=== PATIENT | female | born 1940 | race Caucasian/White ===

== ENCOUNTER 2016-10-29 08:36 | Inpatient (IN) | payer OTHER, MEDICARE ==
[~2016-10-29] VITALS: Ht 152.4 cm; Wt 75.0 kg
[2016-11-04] MEDS ORDERED: PROZ20CA11 PO (10:43)
[2016-11-04] MEDS ORDERED: GLIP5TAB8 PO (10:43)
[2016-11-04] MEDS ORDERED: LOVA40TA PO (10:43)
[2016-11-04] MEDS ORDERED: CALC1TAB87 PO (10:43)
[2016-11-04] MEDS ORDERED: FENO160T PO (10:43)
[2016-11-04] MEDS ORDERED: LISI20TA3 PO (10:43)
[2016-11-04] MEDS ORDERED: METF500T PO (10:43)
[2016-11-06] MEDS ORDERED: DEXT 5%-NACL 0.9% 1000 ML INJ 1,000 ML IV SCH (12:00)
[2016-11-06] MEDS ORDERED: LACTATED RINGER'S 1000 ML INJ 2,000 ML IV ONE (12:00)
[2016-11-06] MEDS ORDERED: PHENYLEPH/NS 1000 MCG/10 ML SYR IV ONE (12:00)
[2016-11-06] MEDS ORDERED: ONDANSETRON HCL 4 MG/2 ML VIAL IV PUSH ONE (12:00)
[2016-11-06] MEDS ORDERED: PROPOFOL 200 MG/20 ML AMP IV ONE (12:00)
[2016-11-06] MEDS ORDERED: METOPROLOL TARTRATE 25 MG TAB PO PRN (12:15)
[2016-11-06] MEDS ORDERED: SODIUM CHLORID 0.9% 500 ML IV PRN (12:15)
[2016-11-06] MEDS ORDERED: ALVIMOPAN 12 MG CAPSULE - On Call PO SCH (12:15)
[2016-11-06] MEDS ORDERED: ceFAZolin 1,000 MG/NS 100 ML IV SCH ×2 (12:15)
[2016-11-06] MEDS ORDERED: CHLORHEXIDINE GLUCONATE 2 % 1 PACK (2 CLOTHS) TOPICAL PRN (12:15)
[2016-11-06] MEDS ORDERED: METRONIDAZOLE 500 MG/100 ML ISONTONIC SOLN IV SCH (12:15)
[2016-11-06] MEDS ORDERED: LACTATED RINGER'S 1000 ML IV PRN (12:15)
[2016-11-06 12:40] VITALS: BP 142/76; PULSE 78; RESP 20; TEMP 99.5; O2SAT 98
[2016-11-06] MEDS: POVIDONE IODINE 5% (ANTISEPSIS KIT) 4 APPLICATIONS EACH NARE PRN ×2 (12:55→13:00)
--- NOTE | 2016-11-06 13:11 | PD.HP.UP ---
H&P Update Note The Pre-Admit History and Physical Examination regarding the above named patient was reviewed (including, but not limited to, vital signs, heart, lungs, co-morbid conditions), and upon re-examination it is noted that: the patient's condition has not significantly changed since the last examination. Shorty Hernandez MD Nov 06, 2016 13:11
[2016-11-06] MEDS ORDERED: BUPIVACAINE HCL PF 0.5% 30 ML VIAL ONE (13:18)
[2016-11-06] MEDS ORDERED: ACETAMINOPHEN 1000 MG/100 ML VIAL IV ONE (13:30)
[2016-11-06] MEDS ORDERED: DICLOFENAC SODIUM 37.5 MG/ML VIAL IV PUSH ONE (13:31)
[2016-11-06] MEDS ORDERED: SUGAMMADEX SODIUM 200 MG/2 ML VIAL IV PUSH ONE ×2 (14:57)
[2016-11-06] MEDS ORDERED: POTASSIUM CHLOR 40 MEQ PREMIX 100 ML IV PRN (16:00)
[2016-11-06] MEDS ORDERED: SODIUM CHLORIDE 0.9% FLUSH 10 ML FLUSH IV FLUSH PRN (16:00)
[2016-11-06] MEDS ORDERED: NALOXONE HCL 0.4 MG/ML AMP IV PRN (16:00)
[2016-11-06] MEDS ORDERED: ACETAMINOPHEN/HYDROcodone 325 MG/5 MG TAB PO PRN (16:00)
[2016-11-06] MEDS ORDERED: BENZOCAINE 6 MG/MENTHOL 10 MG LOZENGE BUCCAL PRN (16:00)
[2016-11-06] MEDS ORDERED: ZOLPIDEM TARTRATE 5 MG TAB PO PRN (16:00)
[2016-11-06] MEDS ORDERED: Post-op Orders (for Pharmacy) MISC XX ONE (16:00)
[2016-11-06] MEDS ORDERED: POTASSIUM CHLOR 20 MEQ PREMIX 100 ML IV PRN (16:00)
[2016-11-06] MEDS ORDERED: ENALAPRILAT 1.25 MG/ML VIAL IV PRN (16:00)
[2016-11-06] MEDS ORDERED: GLUCAGON 1 MG/ML VIAL OTHER PRN (16:15)
[2016-11-06] MEDS ORDERED: DEXTROSE 50% IN WATER 50 ML VIAL(D50) IV PUSH PRN (16:15)
[2016-11-06] MEDS ORDERED: MIDAZOLAM HCL 2 MG/2 ML VIAL ONE (16:17)
[2016-11-06] MEDS ORDERED: fentaNYL CITRATE 250 MCG/5 ML AMP ONE (16:18)
[2016-11-06] MEDS ORDERED: ARTIFICIAL TEARS OPTH OINT 3.5 APPLIC/3.5 GM TUBO ONE (16:20)
[2016-11-06 16:30] LABS: AUTOMATED NEUTROPHIL # 10.5 TH/MM3 (1.8-7.7); BASOPHIL # 0.1 TH/MM3 (0-0.2); BASOPHIL % 0.5 % (0.0-2.0); EOSINOPHIL # 0.1 TH/MM3 (0-0.4); EOSINOPHIL % 0.6 % (0.0-4.0); HEMATOCRIT 30.4 % (35.0-46.0); HEMO FLAGS DIFF FINAL; LYMPH % 10.8 % (9.0-44.0); LYMPHOCYTE # 1.4 TH/MM3 (1.0-4.8); MEAN CELL VOLUME 81.5 FL (80.0-100.0); MEAN CORPUSCULAR HEMOGLOBIN 26.4 PG (27.0-34.0); MEAN CORPUSCULAR HGB CONC 32.4 % (32.0-36.0); MONO % 5.3 % (0.0-8.0); NEUT % 82.8 % (16.0-70.0); PLATELET COUNT 403 TH/MM3 (150-450); RED BLOOD COUNT 3.73 MIL/MM3 (4.00-5.30); RED CELL DISTRIBUTION WIDTH 13.9 % (11.6-17.2); WHITE BLOOD COUNT 12.6 TH/MM3 (4.0-11.0)
[2016-11-06] MEDS: MORPHINE SULFATE 30 MG/30 ML PCA IV SCH (16:44)
[2016-11-06 16:49] LABS: POTASSIUM 3.4 MEQ/L (3.5-5.1)
[2016-11-06] MEDS ORDERED: D5-LR + KCL 20 MEQ INJ 1,000 ML IV SCH (17:00)
[2016-11-06] MEDS ORDERED: *morphine SULFATE 8 MG/ML PERIprocedure ONLY ONE (17:07)
[2016-11-06] MEDS ORDERED: *ONDANSETRON 4 MG VIAL PERIprocedural Use ONLY ONE (17:08)
[2016-11-06] MEDS: METOCLOPRAMIDE HCL 10 MG/2 ML VIAL IVS SCH (17:13)
[2016-11-06 17:20] LABS: CALCIUM-PROTEIN CORRECTED 8.3 MG/DL (8.5-10.1)
[2016-11-06] MEDS ORDERED: DO NOT ADM ANY ANTICOAGULANT DRUGS PRN (17:30)
[2016-11-06 19:00] VITALS: BP 160/90; PULSE 77; PULSE 80; RESP 20; TEMP 98.8; O2SAT 97
[2016-11-06] MEDS: ceFAZolin 2 GM PREMIX 50 ML IV SCH (20:58)
[2016-11-06] MEDS: metroNIDAZOLE 500 MG INJ 100 ML IV SCH (20:59)
[2016-11-06 21:00] VITALS: PULSE 80
[2016-11-06] MEDS: INSULIN NovoLIN REGULAR SUPPLEMENTAL SCALE SQ SCH ×2 (21:00→22:22)
[2016-11-06] MEDS: FUROSEMIDE 20 MG/2 ML VIAL IV SCH (21:00)
[2016-11-06] MEDS: SODIUM CHLORIDE 0.9% FLUSH 10 ML FLUSH IV FLUSH SCH (21:00)
[2016-11-06] MEDS ORDERED: NON-FORMULARY DRUG (Fenofibrate 160 MG) PO SCH (21:00)
[2016-11-06 22:00] VITALS: PULSE 78
[2016-11-06] MEDS: PCA - TOTAL MG MORPHINE DELIVERED PER SHIFT SCH (22:00)
[2016-11-06] MEDS: SODIUM CHLOR 0.9% 1000 ML INJ 1,000 ML IV SCH (22:25)
[2016-11-06 23:00] VITALS: PULSE 83
[2016-11-06 23:12] VITALS: BP 145/93; PULSE 81; TEMP 97.8; O2SAT 96
[2016-11-07] VITALS (19 sets, daily range): BP systolic 117–146; BP diastolic 68–80; PULSE 80–109; RESP 17–20; TEMP 98.5–100.7; O2SAT 93–97
[2016-11-07] MEDS: METOCLOPRAMIDE HCL 10 MG/2 ML VIAL IVS SCH ×4 (00:48→17:53)
[2016-11-07] MEDS: MORPHINE SULFATE 30 MG/30 ML PCA IV SCH (02:33)
[2016-11-07] MEDS: metroNIDAZOLE 500 MG INJ 100 ML IV SCH ×2 (05:32→12:41)
[2016-11-07] MEDS: ceFAZolin 2 GM PREMIX 50 ML IV SCH ×2 (05:32→12:41)
[2016-11-07] MEDS: SODIUM CHLOR 0.9% 1000 ML INJ 1,000 ML IV SCH (05:33)
[2016-11-07] MEDS: PCA - TOTAL MG MORPHINE DELIVERED PER SHIFT SCH ×3 (06:00→22:00)
[2016-11-07] MEDS: INSULIN NovoLIN REGULAR SUPPLEMENTAL SCALE SQ SCH ×4 (06:17→21:00)
[2016-11-07 06:48] LABS: AUTOMATED NEUTROPHIL # 11.3 TH/MM3 (1.8-7.7); HEMO FLAGS DIFF FINAL; LYMPH % 5.1 % (9.0-44.0); LYMPHOCYTE # 0.7 TH/MM3 (1.0-4.8); MEAN CELL VOLUME 81.9 FL (80.0-100.0); MEAN CORPUSCULAR HEMOGLOBIN 26.6 PG (27.0-34.0); MEAN CORPUSCULAR HGB CONC 32.5 % (32.0-36.0); MONO % 6.6 % (0.0-8.0); NEUT % 88.3 % (16.0-70.0); PLATELET COUNT 410 TH/MM3 (150-450); RED BLOOD COUNT 4.15 MIL/MM3 (4.00-5.30); RED CELL DISTRIBUTION WIDTH 13.9 % (11.6-17.2); WHITE BLOOD COUNT 12.8 TH/MM3 (4.0-11.0)
[2016-11-07 07:11] LABS: BICARBONATE 27.9 MEQ/L (21.0-32.0); POTASSIUM 3.7 MEQ/L (3.5-5.1)
[2016-11-07 07:29] LABS: CALCIUM-PROTEIN CORRECTED 7.8 MG/DL (8.5-10.1)
[2016-11-07] MEDS ORDERED: NON-FORMULARY DRUG (Lisinopril-Hctz 1 TAB) PO SCH (09:00)
[2016-11-07] MEDS: HYDROCHLOROTHIAZIDE 25 MG TAB PO SCH (09:14)
[2016-11-07] MEDS: FENOFIBRATE 48 MG TAB PO SCH (09:14)
[2016-11-07] MEDS: ALVIMOPAN 12 MG CAPSULE - Post-op dosing PO SCH ×2 (09:15→23:24)
[2016-11-07] MEDS: FLUoxetine HCL 20 MG CAP PO SCH (09:19)
[2016-11-07] MEDS: PANTOPRAZOLE SODIUM 40 MG VIAL IVP SCH (09:19)
[2016-11-07] MEDS: FUROSEMIDE 20 MG/2 ML VIAL IV SCH ×2 (09:19→23:24)
[2016-11-07] MEDS: SODIUM CHLORIDE 0.9% FLUSH 10 ML FLUSH IV FLUSH SCH ×2 (09:20→21:00)
[2016-11-07] MEDS: PRAVASTATIN SOD 40 MG TAB PO SCH (09:23)
[2016-11-07] MEDS: LISINOPRIL 20 MG TAB PO SCH (09:23)
--- NOTE | 2016-11-07 13:24 | HHI.PR ---
Subjective Remarks No N or V. No BMs Objective Vital Signs Date Time Temp Pulse Resp B/P Pulse Ox O2 Delivery O2 Flow Rate FiO2 11/07/16 13:00 89 11/07/16 12:00 88 11/07/16 11:00 86 11/07/16 11:00 98.5 85 20 117/75 97 11/07/16 10:00 86 11/07/16 09:16 93 Nasal Cannula 2.00 11/07/16 09:00 84 11/07/16 08:00 80 11/07/16 07:48 99.2 86 20 130/80 96 11/07/16 07:00 86 11/07/16 06:07 87 11/07/16 06:00 18 11/07/16 05:54 90 11/07/16 04:00 84 11/07/16 03:52 98.8 86 119/78 97 11/07/16 03:02 16 11/07/16 03:00 85 11/07/16 02:33 18 11/07/16 02:00 82 11/07/16 01:00 82 11/07/16 00:00 80 11/06/16 23:12 97.8 81 145/93 96 11/06/16 23:00 83 11/06/16 22:00 78 11/06/16 22:00 18 11/06/16 21:00 80 11/06/16 19:00 80 11/06/16 19:00 98.8 77 20 160/90 97 11/06/16 18:00 97.6 77 12 156/71 95 Nasal Cannula 2 11/06/16 17:30 73 13 166/78 98 Nasal Cannula 2 11/06/16 17:15 68 19 139/73 100 Nasal Cannula 2 11/06/16 17:00 63 15 140/70 100 Nasal Cannula 2 11/06/16 16:45 62 14 140/65 98 Nasal Cannula 2 11/06/16 16:44 15 11/06/16 16:30 60 12 132/70 98 Nasal Cannula 2 11/06/16 16:15 61 14 152/70 98 Nasal Cannula 2 11/06/16 16:07 98.0 69 16 172/80 97 Nasal Cannula 2 I/O 11/06/16 11/06/16 11/06/16 11/07/16 11/07/16 11/07/16 07:00 15:00 23:00 07:00 15:00 23:00 Intake Total 1700 ml 1370 ml Output Total 850 ml 1970 ml Balance 850 ml -600 ml Intake Oral 120 ml IV Total 1250 ml Other 1700 ml Output Urine Total 500 ml 1900 ml Drainage Total 100 ml 70 ml Estimated Blood Loss 250 ml Result Diagram: 11/07/16 0525 11/07/16524 Objective Remarks VS-S Abd: soft,dressing dry. I&Os-OK Labs-OK Assessment and Plan Assessment and Plan Stable POD#[address] [place] [address], CEDRIC,Shorty Chapa MD Nov 07, 2016 13:24
[2016-11-07] MEDS: POTASSIUM CHLORIDE INJ 20 MEQ in LACTATED RINGER'S 1000 ML INJ 1,000 ML IV SCH ×2 (14:25→23:05)
[2016-11-07] MEDS: INSULIN HUMAN REGULAR 1,000 UNITS/10 ML VIAL SQ PRN (18:06)
[2016-11-07] MEDS ORDERED: ALVIMOPAN 12 MG CAPSULE PO SCH (21:00)
[2016-11-08] VITALS: BP 136/81; PULSE 104; RESP 18; TEMP 100.2; O2SAT 93
[2016-11-08 04:00] VITALS: BP 161/81; PULSE 103; RESP 18; TEMP 99.6; O2SAT 92
[2016-11-08] MEDS: METOCLOPRAMIDE HCL 10 MG/2 ML VIAL IVS SCH ×5 (05:34→18:00)
[2016-11-08] MEDS: PCA - TOTAL MG MORPHINE DELIVERED PER SHIFT SCH (05:36)
[2016-11-08] MEDS: INSULIN NovoLIN REGULAR SUPPLEMENTAL SCALE SQ SCH ×4 (05:43→21:00)
[2016-11-08] MEDS: POTASSIUM CHLORIDE INJ 20 MEQ in LACTATED RINGER'S 1000 ML INJ 1,000 ML IV SCH ×2 (07:10→20:32)
[2016-11-08 07:21] LABS: AUTOMATED NEUTROPHIL # 11.8 TH/MM3 (1.8-7.7); BASOPHIL % 0.2 % (0.0-2.0); HEMATOCRIT 31.2 % (35.0-46.0); HEMO FLAGS DIFF FINAL; LYMPHOCYTE # 0.9 TH/MM3 (1.0-4.8); MEAN CELL VOLUME 81.1 FL (80.0-100.0); MEAN CORPUSCULAR HEMOGLOBIN 26.3 PG (27.0-34.0); MEAN CORPUSCULAR HGB CONC 32.4 % (32.0-36.0); MONO % 5.9 % (0.0-8.0); NEUT % 86.9 % (16.0-70.0); PLATELET COUNT 409 TH/MM3 (150-450); RED BLOOD COUNT 3.84 MIL/MM3 (4.00-5.30); WHITE BLOOD COUNT 13.5 TH/MM3 (4.0-11.0)
[2016-11-08 07:57] LABS: BICARBONATE 28.3 MEQ/L (21.0-32.0); POTASSIUM 3.3 MEQ/L (3.5-5.1)
[2016-11-08 08:00] VITALS: BP 170/85; PULSE 101; RESP 16; TEMP 99.1; O2SAT 93
[2016-11-08] MEDS: ALVIMOPAN 12 MG CAPSULE - Post-op dosing PO SCH ×2 (08:56→21:14)
[2016-11-08] MEDS: LISINOPRIL 20 MG TAB PO SCH (08:56)
[2016-11-08] MEDS: HYDROCHLOROTHIAZIDE 25 MG TAB PO SCH (08:57)
[2016-11-08] MEDS: PANTOPRAZOLE SODIUM 40 MG VIAL IVP SCH (08:57)
[2016-11-08] MEDS: FLUoxetine HCL 20 MG CAP PO SCH (08:57)
[2016-11-08] MEDS: PRAVASTATIN SOD 40 MG TAB PO SCH (08:57)
[2016-11-08] MEDS: FENOFIBRATE 48 MG TAB PO SCH (08:58)
[2016-11-08] MEDS: FUROSEMIDE 20 MG/2 ML VIAL IV SCH ×2 (08:59→21:14)
[2016-11-08] MEDS: SODIUM CHLORIDE 0.9% FLUSH 10 ML FLUSH IV FLUSH SCH ×2 (08:59→21:14)
--- NOTE | 2016-11-08 11:32 | MP ---
cc: PAOLA HERNANDEZ M.D. DATE OF SURGERY: 11/08/2016. PREOPERATIVE DIAGNOSIS: Sigmoid colon carcinoma. POSTOPERATIVE DIAGNOSIS: Sigmoid colon carcinoma. OPERATIVE PROCEDURE PERFORMED: Rectosigmoidectomy. SURGEON: Paola Hernandez M.D. PRODUCT EXAMINER: Gomez Mtz MD. ANESTHESIA: General endotracheal anesthesia. ESTIMATED BLOOD LOSS: 300 cc. OPERATIVE FINDINGS: This patient was found to have a sigmoid colon carcinoma that was nearly obstructing. For this reason, colectomy was recommended with intraoperative colonoscopy. At surgery, exploration of the abdominal cavity was within normal limits including palpation of the liver, gallbladder, small bowel and the remainder of the colon. The uterus and tubes and ovaries were also intact and normal-appearing. The carcinoma was located in the sigmoid colon and a sigmoidectomy was done with a colorectal anastomosis. An intraoperative colonoscopy was also done to the cecum after the resection and the colonoscopy was normal. DESCRIPTION OF THE PROCEDURE IN DETAIL / OPERATIVE TECHNIQUE: The patient was placed on the table in the supine position. After adequate general endotracheal anesthesia, the legs were placed in the perineolithotomy position and the abdomen and perineum were prepped and draped in the usual manner. A transverse infraumbilical skin incision was made and carried down through the subcutaneous tissue and the rectus muscles and the peritoneal cavity was entered with the above-mentioned findings. Attention was turned to the sigmoid colon, which was mobilized along its peritoneal reflection. It had some dense adhesions along its peritoneal reflection in the sigmoid region and the descending colon was likewise mobilized as was the full splenic flexure and transverse colon because it appeared that we would need an extra length of colon to create the anastomosis. Next, the inferior mesenteric artery was doubly clamped, cut and doubly ligated at its origin and the inferior mesenteric vein was likewise clamped, cut and ligated. The retrorectal space was entered and the lateral pelvic peritoneum was incised bilaterally. Again there was fibrous dense dissection laterally along the peritoneal reflection. The retrorectal space was dissected deeply into the pelvis as was the lateral dissection. The cul-de-sac was not fully entered but the cul-de-sac serosa was creased to allow mobilization. Next, a point was chosen on the mid to upper rectum which seemed soft and pliable and the mesorectum was divided with electrocautery. The pursestring stapling device was then placed on the rectum and the rectum was divided. At this point, the rectum was aspirated of any liquid stool transanally and then the rectum was opened from above and irrigated. There were small pieces of stool in the rectum that were taken out at that time and the rectum was irrigated thoroughly with saline solution. When this was done, a point was chosen in the proximal bowel just above the sigmoid colon and the remainder of the sigmoid mesentery was clamped, cut and ligated and the sigmoid colon was cleared. There were diverticula present in the sigmoid colon but a point that was cleared diverticula was chosen and the pursestring stapling device was placed and the bowel was divided and the specimen was removed from the table. The anvil of the 33 EEA instrument was placed in the proximal bowel the pursestring was tied free of any surrounding diverticula. Next, the EEA instrument was placed transanally by Dr. Mtz and the distal pursestring was tied in the instrument was connected, closed and fired creating the anastomosis. There was no tension on the anastomosis and the blood supply was excellent. Dr. Mtz then did proctosigmoidoscopy examination insufflating air into the rectum with saline solution in the pelvis and no air leaks were identified. He then did colonoscopy through the anastomosis and up to the cecum identifying no other lesions in the proximal colon since she had an incomplete colonoscopy prior to the surgery. Next, we again leak tested the anastomosis insufflating air into the rectum with the colonoscope with saline solution in the pelvis and no air leaks were identified again. The fully mobilized omental flap was then placed down the left colic gutter and placed around the left colic gutter and placed in the pelvis to seal the pelvis. It should be mentioned that the abdominal cavity was irrigated with at least 4 liters of saline solution thoroughly washing out the abdominal cavity. A #10 flat Pj drain was placed in the retrorectal space and brought out through a separate stab wound and the bowels were placed in the abdominal cavity in an overseamer manner. All hemostasis was checked throughout the case, and at the end of the case, and was controlled with electrocautery and ligature and was adequate. Next the abdominal cavity was closed in layers using a double-stranded #1 PDS for the posterior rectus sheath. The muscle layer was irrigated thoroughly with saline solution, aspirated dry and then the anterior rectus sheath was closed with a double-stranded #1 PDS as well. The subcutaneous tissue was irrigated thoroughly with saline solution, aspirated dry and skin was closed with running 3-0 Vicryl subcuticular suture and dressing was applied. Sponge, needle and instrument counts were reported as correct. Estimated blood loss was 300 mL. The patient tolerated the procedure well and left the operating room in good condition. MD TE Jarvis/MARCE /9:46 PM /11:17 AM
--- NOTE | 2016-11-08 11:45 | HHI.PR ---
Subjective Remarks No N or V. No BMs. Schilling removed Objective Vital Signs Date Time Temp Pulse Resp B/P Pulse Ox O2 Delivery O2 Flow Rate FiO2 11/08/16 08:00 99.1 101 16 170/85 93 11/08/16 05:36 18 11/08/16 04:00 99.6 103 18 161/81 92 11/08/16 00:00 100.2 104 18 136/81 93 11/07/16 22:00 18 11/07/16 20:00 100.7 109 18 146/71 94 11/07/16 16:00 98.9 93 17 139/68 93 11/07/16 14:00 20 11/07/16 13:00 89 11/07/16 12:00 88 I/O 11/07/16 11/07/16 11/07/16 11/08/16 11/08/16 11/08/16 06:59 14:59 22:59 06:59 14:59 22:59 Intake Total 1370 ml 2725 ml 767 ml Output Total 1970 ml 1780 ml 400 ml Balance -600 ml 945 ml 367 ml Intake Oral 120 ml 580 ml IV Total 1250 ml 2145 ml 767 ml Output Urine Total 1900 ml 1700 ml 400 ml Drainage Total 70 ml 80 ml Result Diagram: 11/08/16 0532 11/08/16531 Objective Remarks VS-S Abd: soft,dressing off today I&Os-OK Labs-OK Assessment and Plan Assessment and Plan Stable POD#2 FLD, Ambulate,decrease IVs Shorty Hernandez MD Nov 08, 2016 11:45
[2016-11-08 12:00] VITALS: BP 159/75; PULSE 98; RESP 14; TEMP 98.3; O2SAT 94
[2016-11-08] MEDS: INSULIN HUMAN REGULAR 1,000 UNITS/10 ML VIAL SQ PRN ×2 (12:10→16:37)
[2016-11-08 16:00] VITALS: BP 140/71; PULSE 92; RESP 16; TEMP 98.8; O2SAT 94
[2016-11-08 20:00] VITALS: BP 141/69; PULSE 69; RESP 20; TEMP 100.2; O2SAT 94
[2016-11-08] MEDS: ACETAMINOPHEN/HYDROcodone 325 MG/5 MG TAB PO PRN (21:13)
[2016-11-09] VITALS (7 sets, daily range): BP systolic 126–166; BP diastolic 68–81; PULSE 72–99; RESP 18–20; TEMP 98.7–100.6; O2SAT 94–96
[2016-11-09] MEDS: METOCLOPRAMIDE HCL 10 MG/2 ML VIAL IVS SCH ×5 (00:16→23:58)
[2016-11-09] MEDS: INSULIN NovoLIN REGULAR SUPPLEMENTAL SCALE SQ SCH ×4 (06:18→21:12)
[2016-11-09] MEDS: LISINOPRIL 20 MG TAB PO SCH (08:51)
[2016-11-09] MEDS: HYDROCHLOROTHIAZIDE 25 MG TAB PO SCH (08:51)
[2016-11-09] MEDS: FUROSEMIDE 20 MG/2 ML VIAL IV SCH (08:51)
[2016-11-09] MEDS: FLUoxetine HCL 20 MG CAP PO SCH (08:51)
[2016-11-09] MEDS: PANTOPRAZOLE SODIUM 40 MG VIAL IVP SCH (08:52)
[2016-11-09] MEDS: SODIUM CHLORIDE 0.9% FLUSH 10 ML FLUSH IV FLUSH SCH ×2 (08:52→21:08)
[2016-11-09] MEDS: PRAVASTATIN SOD 40 MG TAB PO SCH (08:52)
[2016-11-09] MEDS: FENOFIBRATE 48 MG TAB PO SCH (08:52)
[2016-11-09] MEDS: ALVIMOPAN 12 MG CAPSULE - Post-op dosing PO SCH ×2 (08:52→21:07)
--- NOTE | 2016-11-09 11:24 | HHI.PR ---
Subjective Remarks No N or V. Small BM yesterday Objective Vital Signs Date Time Temp Pulse Resp B/P Pulse Ox O2 Delivery O2 Flow Rate FiO2 11/09/16 04:00 98.7 11/09/16 00:00 100.6 90 18 166/81 94 11/08/16 20:00 100.2 69 20 141/69 94 11/08/16 16:00 98.8 92 16 140/71 94 11/08/16 12:00 98.3 98 14 159/75 94 I/O 11/08/16 11/08/16 11/08/16 11/09/16 11/09/16 11/09/16 07:00 15:00 23:00 07:00 15:00 23:00 Intake Total 767 ml 1200 ml 240 ml 665 ml Output Total 400 ml 1700 ml 600 ml 600 ml Balance 367 ml -500 ml -360 ml 65 ml Intake Oral 1200 ml 240 ml 240 ml IV Total 767 ml 425 ml Output Urine Total 400 ml 1700 ml 600 ml 500 ml Drainage Total 100 ml # Bowel Movements 1 0 0 Result Diagram: 11/08/16 0532 11/08/16 0532 Objective Remarks VS-S Abd: soft,dressing removed I&Os-OK Labs-OK Assessment and Plan Assessment and Plan Stable POD#3 Regular diet. Ambulate Shorty Hernandez MD Nov 09, 2016 11:24
[2016-11-09] MEDS: ACETAMINOPHEN/HYDROcodone 325 MG/5 MG TAB PO PRN (21:12)
[2016-11-10] VITALS: BP 139/87; PULSE 104; RESP 19; TEMP 100.2; O2SAT 95
[2016-11-10] MEDS: ACETAMINOPHEN/HYDROcodone 325 MG/5 MG TAB PO PRN ×2 (03:32→06:39)
[2016-11-10 04:00] VITALS: TEMP 98.2
[2016-11-10] MEDS: METOCLOPRAMIDE HCL 10 MG/2 ML VIAL IVS SCH ×2 (06:31→12:29)
[2016-11-10] MEDS: INSULIN NovoLIN REGULAR SUPPLEMENTAL SCALE SQ SCH ×2 (06:36→12:33)
[2016-11-10 08:00] VITALS: BP 94/62; PULSE 68; RESP 16; TEMP 97.5; O2SAT 93
[2016-11-10] MEDS: HYDROCHLOROTHIAZIDE 25 MG TAB PO SCH (09:06)
[2016-11-10] MEDS: LISINOPRIL 20 MG TAB PO SCH (09:06)
[2016-11-10] MEDS: FENOFIBRATE 48 MG TAB PO SCH (09:06)
[2016-11-10] MEDS: PANTOPRAZOLE SODIUM 40 MG VIAL IVP SCH (09:06)
[2016-11-10] MEDS: ALVIMOPAN 12 MG CAPSULE - Post-op dosing PO SCH (09:07)
[2016-11-10] MEDS: PRAVASTATIN SOD 40 MG TAB PO SCH (09:07)
[2016-11-10] MEDS: FLUoxetine HCL 20 MG CAP PO SCH (09:07)
--- NOTE | 2016-11-10 09:46 | HHI.DCPOC ---
Discharge Care Plan Diagnosis: (1) Cancer, colon (2) Status post partial resection of colon Your Health Problems Are: Incision/Drains Appetite Changes Irregular Bowel Function Exercise Tolerance Fluctuating Blood Sugars Goals to Promote Your Health * To prevent worsening of your condition and complications * To maintain your health at the optimal level Directions to Meet Your Goals Take your medications as prescribed Follow your dietary instruction Follow activity as directed Keep your appointments as scheduled Take your immunizations and boosters as scheduled If your symptoms worsen call your PCP, if no PCP go to Urgent Care Center or Emergency Room Smoking is Dangerous to Your Health. Avoid second hand smoke Call the 24-hour hour crisis hotline for domestic abuse at Shorty Hernandez MD Nov 10, 2016 09:46
--- NOTE | 2016-11-10 09:51 | HHI.PR ---
Subjective Remarks No N or V. Several Small BMs. Several low grade temps to 100.5. No SOB,dysuria or abdominal pain. Objective Vital Signs Date Time Temp Pulse Resp B/P Pulse Ox O2 Delivery O2 Flow Rate FiO2 11/10/16 08:00 97.5 68 16 94/62 93 11/10/16 04:00 98.2 11/10/16 00:00 100.2 104 19 139/87 95 11/09/16 20:00 100.0 72 19 126/74 96 11/09/16 16:17 84 11/09/16 16:00 100.2 99 20 128/68 95 11/09/16 12:00 99.6 92 18 130/73 96 I/O 11/09/16 11/09/16 11/09/16 11/10/16 11/10/16 11/10/16 07:00 15:00 23:00 07:00 15:00 23:00 Intake Total 665 ml 1600 ml 240 ml 240 ml Output Total 600 ml 1660 ml 250 ml 10 ml Balance 65 ml -60 ml -10 ml 230 ml Intake Oral 240 ml 1200 ml 240 ml 240 ml IV Total 425 ml 400 ml Output Urine Total 500 ml 1600 ml 200 ml Drainage Total 100 ml 60 ml 50 ml 10 ml # Voids 2 # Bowel Movements 0 0 0 0 Result Diagram: 11/08/16 0532 11/08/16531 Objective Remarks VS-S Abd: soft,wound clean. No redness Assessment and Plan Assessment and Plan Stable; several low grade temps. POD#4 Drain clear and removed by me. Check stat CxR,CBC,and U/A then D/C today if acceptable Shorty Hernandez MD Nov 10, 2016 09:51
--- NOTE | 2016-11-10 10:23 | RADRPT ---
EXAM DATE/TIME: 11/10/2016 10:09 [facility] COMPARISON: No previous studies available for comparison. INDICATIONS : Shortness of breath and fever since yesterday. MEDICAL HISTORY : Hypertension. Diabetes mellitus type II. SURGICAL HISTORY : None. ENCOUNTER: Initial ACUITY: 2 days PAIN SCORE: 0/10 LOCATION: Bilateral chest FINDINGS: PA and lateral views of the chest demonstrate the lungs to be symmetrically aerated without evidence of mass, infiltrate or effusion. There is eventration of the right hemidiaphragm. A linear area of ai r-like density is seen projecting below the right hemidiaphragm on the lateral projection. The cardio mediastinal contours are unremarkable. Osseous structures are intact. CONCLUSION: 1. Concern for possible pneumoperitoneum. Consider either CT scan of the abdomen pelvis or decubitus views of the abdomen to further evaluate. 2. Clear lungs. Robi Swan Jr., MD on November 10, 2016 at 10:20 Board Certified Radiologist. This report was verified electronically.
[2016-11-10 12:00] VITALS: BP 139/64; PULSE 84; RESP 16; TEMP 97.5; O2SAT 96
[2016-11-10 12:54] LABS: BACTERIA, URINE OCC /hpf; BLOOD, URINE NEG (NEG); COMMENT (UR) CULTURE INDICATED; CULTURE IF INDICATED CULTURE INDICATED; GLUCOSE,URINE NEG (NEG); HYALINE CAST, URINE 10 /lpf (RARE); KETONE, URINE TRACE mg/dL (NEG); MUCUS URINE FEW /lpf (OCC); NITRITE,URINE NEG (NEG); SQUAMOUS EPITHELIAL CELL URINE 1 /hpf (0-5); URINE COLOR YELLOW (YELLW/STRAW)
[2016-11-10 13:31] LABS: AUTOMATED NEUTROPHIL # 6.9 TH/MM3 (1.8-7.7); BASOPHIL # 0.1 TH/MM3 (0-0.2); BASOPHIL % 0.9 % (0.0-2.0); EOSINOPHIL # 0.2 TH/MM3 (0-0.4); EOSINOPHIL % 1.6 % (0.0-4.0); HEMATOCRIT 34.1 % (35.0-46.0); HEMO FLAGS DIFF FINAL; LYMPH % 20.3 % (9.0-44.0); MEAN CELL VOLUME 80.2 FL (80.0-100.0); MEAN CORPUSCULAR HEMOGLOBIN 25.9 PG (27.0-34.0); MEAN CORPUSCULAR HGB CONC 32.2 % (32.0-36.0); MONO % 7.9 % (0.0-8.0); NEUT % 69.3 % (16.0-70.0); PLATELET COUNT 596 TH/MM3 (150-450); RED BLOOD COUNT 4.25 MIL/MM3 (4.00-5.30); RED CELL DISTRIBUTION WIDTH 13.8 % (11.6-17.2); WHITE BLOOD COUNT 9.9 TH/MM3 (4.0-11.0)
[2016-11-10 16:00] VITALS: BP 127/66; PULSE 94; RESP 16; TEMP 98.3; O2SAT 98
== END 2016-11-10 18:19 | disposition home or self-care (01) | DRG 331 ==
LOC: HSDI 11-06 11:37 → HCIS 11-06 18:39 → N07A 11-07 16:02
PROVIDERS: ADMIT Colon & Rectal Surgery; ATTEND Colon & Rectal Surgery
PROC: 0DJD8ZZ Inspection of Lower Intestinal Tract, Via Natural or Artificial Opening Endoscopic (ICD-10-PCS; 2016-11-06)
PROC: 0DTN0ZZ Resection of Sigmoid Colon, Open Approach (ICD-10-PCS; principal; 2016-11-06 13:30)
PROC: 0DBP0ZZ Excision of Rectum, Open Approach (ICD-10-PCS; 2016-11-06 13:30)
DX: C18.7 Malignant neoplasm of sigmoid colon (principal); E11.9 Type 2 diabetes mellitus without complications; K76.0 Fatty (change of) liver, not elsewhere classified; E66.9 Obesity, unspecified; I10 Essential (primary) hypertension; K57.30 Diverticulosis of large intestine without perforation or abscess without bleeding; E78.5 Hyperlipidemia, unspecified; Z87.891 Personal history of nicotine dependence
CPT/HCPCS: 71020; 80048; 80053; 81001; 82378; 82948; 84155; 85025; 85610; 85730; 86850; 86900; 86901; 87086; 88309; 93005; 94150; C9113; J0131; J0690; J1130; J1815; J1940; J2250; J2270; J2370; J2405; J2765; J3010; J3480; J7030; J7042; J7120

== ENCOUNTER → 2016-11-04 | Outpatient (CLI) | payer OTHER ==
[~2016-11-04] MED LIST: ANAP550T OR; CALC1TAB87 PO; FENO160T PO; FLON0.053; GLIP5TAB8 PO; GLUCTAB PO; HYDR-2768 PO; LEVEMIR SQ; LISI10TA PO; LISI20TA3 PO; LOVA1TAB47 PO; LOVA40TA PO; METF-324 OR; METF500T PO; OXYC-360 PO; PROZ20CA11 PO
[2016-11-04 10:58] LABS: AUTOMATED NEUTROPHIL # 5.6 TH/MM3 (1.8-7.7); BASOPHIL # 0.1 TH/MM3 (0-0.2); BASOPHIL % 0.6 % (0.0-2.0); EOSINOPHIL # 0.1 TH/MM3 (0-0.4); EOSINOPHIL % 1.7 % (0.0-4.0); HEMATOCRIT 35.3 % (35.0-46.0); HEMO FLAGS DIFF FINAL; LYMPH % 19.7 % (9.0-44.0); LYMPHOCYTE # 1.6 TH/MM3 (1.0-4.8); MEAN CORPUSCULAR HEMOGLOBIN 26.7 PG (27.0-34.0); MEAN CORPUSCULAR HGB CONC 33.3 % (32.0-36.0); MONO % 8.2 % (0.0-8.0); NEUT % 69.8 % (16.0-70.0); PLATELET COUNT 378 TH/MM3 (150-450); RED BLOOD COUNT 4.41 MIL/MM3 (4.00-5.30)
[2016-11-04 11:09] LABS: APTT (PATIENT) 27.2 SEC (24.3-30.1); INTERNATIONAL NORMALIZED RATIO 1.1 RATIO; PROTHROMBIN TIME - PATIENT 11.7 SEC (9.8-11.6)
[2016-11-04 11:19] LABS: ALT (GPT) 23 U/L (10-53); ANION GAP 8 MEQ/L (5-15); AST (GOT) 17 U/L (15-37); BICARBONATE 29.7 MEQ/L (21.0-32.0); BLOOD UREA NITROGEN 23 MG/DL (7-18); CHLORIDE 102 MEQ/L (98-107); GLOMERULAR FILTRATION RATE 43 ML/MIN (>89); GLUCOSE,FASTING 171 MG/DL (74-99); POTASSIUM 3.6 MEQ/L (3.5-5.1); SODIUM (NA) 140 MEQ/L (136-145)
[2016-11-04 11:21] LABS: ALKALINE PHOSPHATASE 49 U/L (45-117); TOTAL BILIRUBIN ADULT 0.3 MG/DL (0.2-1.0)
[2016-11-04 11:31] LABS: BLOOD, URINE NEG (NEG); COMMENT (UR) CULT NOT INDICATED; CULTURE IF INDICATED CULT NOT INDICATED; GLUCOSE,URINE NEG (NEG); KETONE, URINE NEG (NEG); MUCUS URINE FEW /lpf (OCC); NITRITE,URINE NEG (NEG); PH, URINE 6.5 (5.0-8.5); URINE COLOR YELLOW (YELLW/STRAW)
--- NOTE | 2016-11-04 14:52 | EKG ---
Date Performed: 11/04/2016 Time Performed: 10:35:11 PTAGE: 76 years EKG: Sinus rhythm Poor R wave progression Diffuse ST changes PREVIOUS TRACING : 05/22/2012 19.08 DOCTOR: Yessenia Harmon Interpretating Date/Time 11/04/2016 14:50:38
== END ==
LOC: CPRE 10:07
PROVIDERS: ATTEND Colon & Rectal Surgery
DX: Z01.810 Encounter for preprocedural cardiovascular examination (principal); Z01.812 Encounter for preprocedural laboratory examination; C18.7 Malignant neoplasm of sigmoid colon
CPT/HCPCS: 80053; 81001; 82378; 85025; 85610; 85730; 86850; 86900; 86901; 93005